=== PATIENT | male | born 1950 | race Caucasian/White ===

== ENCOUNTER 2016-02-18 10:59 | Emergency (ER) | payer OTHER ==
[2016-02-18] MEDS ORDERED: IPRATROPIUM/ALBUTEROL 3 ML DEYVIAL IH ONE (12:36)
[2016-02-18] MEDS ORDERED: NS 1,000 ML IV ONE (12:41)
[2016-02-18 13:06] LABS: % IMMATURE GRANULYOCYTES 0.3 % (0.0-1.1); ABSOLUTE IMMATURE GRANULOCYTES 0.04 10^3/uL (0.00-0.10); ADD DIFF? NO; ADD MORPH? NO; ADD SCAN? NO; ATYPICAL LYMPHOCYTE FLAG 0 (0-99); FRAGMENT RBC FLAG 0 (0-99); HEMATOCRIT 43.1 % (40.0-51.0); HEMOGLOBIN 14.3 g/dL (13.7-17.5); LEFT SHIFT FLG 0 (0-99); LIPEMIA HEMOLYSIS FLAG 80 (0-99); MEAN CELL HEMOGLOBIN 30.4 pg (27.9-34.1); MEAN CELL HEMOGLOBIN CONCENTR. 33.2 g/dL (32.4-36.7); MEAN CELL VOLUME 91.5 fL (81.5-99.8); MEAN PLATELET VOLUME 10.2 fL (8.7-11.7); PLATELET CLUMPS FLAG 10 (0-99); PLATELET COUNT 248 10^3/uL (150-400); RED BLOOD CELL COUNT 4.71 10^6/uL (4.40-6.38); RED CELL DISTRIBUTION WIDTH 12.7 % (11.5-15.2)
--- NOTE | 2016-02-18 13:06 | UCPHY ---
H & P Patient Type: Established Chief Complaint Nursing Narrative: COUGH AND CONGESTION FOR 2 DAYS, SHORTNESS OF BREATH, FATIGUE, WEAKNESS, DENIES FEVERS. Time Seen by Provider: 02/18/16 12:38 HPI/ROS: This patient complains of cough and dyspnea. For the past 10 days he has had mild dry cough initially. However, over the past 3 days cough has been come productive and more frequent. He reports increasing dyspnea over the past few days in addition including dyspnea on exertion and mild dyspnea at rest. He has associated fatigue. He reports some myalgias as well but denies any other associated symptoms. His recent history is notable for being off of Coumadin for approximately 10 days due to a GI bleed caused in part due to Coumadin induced coagulopathy with an INR of 7. He was hospitalized in [place] for that illness and just started his Coumadin again 3 days prior to arrival taking 5 mg a day 5 days a week and 7.5 mg a day 2 days a week. ROS: Constitutional: No high fevers or chills HEENT: He reports intermittent migraines that seem to be triggered by guaifenesin. He has mild nasal congestion. Neuro: No focal numbness tingling weakness Currently he has no significant headache. Pulmonary: No pleuritic chest pain. No bloody sputum. Cardiac: No heart palpitations. No lightheadedness. No peripheral edema or calf tenderness. GI: He reports no belly pain except for mild belly bloating. Integumentary: No rash and complete review of symptoms is otherwise negative Source: Patient Exam Limitations: No limitations - Medical/Surgical History PMH: Pulmonary embolism Recent GI bleed due to coagulopathy hospitalized in [place] on 02/01 to Off of Coumadin for 10 days just restarted 3 days ago Hx Asthma: No Hx Chronic Respiratory Disease: No Hx Diabetes: No Hx Cardiac Disease: No Hx Renal Disease: No Hx Cirrhosis: No Hx Alcoholism: No Hx HIV/AIDS: No Hx Splenectomy or Spleen Trauma: No Other PMH: Bilateral total knee replacement, PE 2012, CHRONIC LOW BACK PAIN, migraine headaches - Family History Significant Family History: No pertinent family hx - Social History Smoking Status: Former smoker Constitutional: Initial Vital Signs Temperature (C) 37.0 C 02/18/16 12:31 Heart Rate 102 H 02/18/16 12:31 Respiratory Rate 24 H 02/18/16 12:31 Blood Pressure 151/78 H 02/18/16 12:31 O2 Sat (%) 90 L 02/18/16 12:31 O2 Delivery Mode Nasal Cannula O2 (L/minute) 2 Allergies/Adverse Reactions: NARCOTICS Allergy (Uncoded 02/18/16 12:29) Home Medications: Medication Instructions Recorded Coumadin 12/10/14 Depakote 12/10/14 GABAPENTIN 12/10/14 KLONOPIN 12/10/14 Mysoline 12/10/14 Nasal Decongestants 12/10/14 Verapamil 12/10/14 Vytorin 10-10 mg Tablet 12/10/14 Zomig 12/10/14 traMADOL 12/10/14 Cefuroxime Axetil [Cefuroxime] 500 mg PO BID #14 tablet 02/27/15 Lasix 02/27/15 Albuterol Hfa Anes Only [Proair 2 puffs IH Q4 PRN #1 mdi 02/18/16 Hfa Icu (*)] Azithromycin [Zithromax] 250 mg PO DAILY #6 tab 02/18/16 Medical Decision Making - Diagnostics Imaging: I reviewed this CT angio with Dr. luna-radiologist reports a lot of baseline findings consistent with sarcoidosis. No PE. Patient has interstitial findings with evidence of very early infiltrates left medial region and right basilar region-likely early pneumonia ED Course/Re-evaluation: Use cannula O2 2 L with O2 sat in the mid 90s after initial room air of 90% DuoNeb, with mild reduction and coughing subjective improvement IV, blood cultures labs Ceftriaxone IV I counseled patient regarding his workup findings with CT angio negative for PE , positive for early pneumonia The patient's O2 sat in room air 87%. He appears well clinically despite this not think is safe for discharge home with supplementary O2 and close follow-up. Patient agrees with this plan and is not interested in admission for his illness. Discussion: Patient with mild hypoxia from early pneumonia. We ruled out PE. He also has history of sarcoidosis but is otherwise well. - Data Points Laboratory Results: Laboratory Results 02/18/16 12:56 02/18/16 12:56 Medications Given: Discontinued Medications Albuterol/Ipratropium (Duoneb) 3 ml IH EDNOW ONE Stop: 02/18/16 12:37 Last Admin: 02/18/16 12:45 Dose: 3 ml Sodium Chloride (Ns) 1,000 mls @ 0 mls/hr IV ONCE ONE PRN Reason: Wide Open Stop: 02/18/16 12:42 Last Admin: 02/18/16 13:00 Dose: 1,000 mls Ceftriaxone Sodium 1 gm/ (Sodium Chloride) 100 mls @ 200 mls/hr IV EDNOW ONE PRN Reason: Protocol Stop: 02/18/16 14:44 Last Admin: 02/18/16 14:24 Dose: 100 mls Departure - Departure Disposition: Home, Routine, Self-Care Clinical Impression: Bronchial pneumonia Condition: Good Instructions: Community Acquired Pneumonia (ED) Additional Instructions: Diagnosis: Bronchial pneumonia Plan: Humidifier Albuterol inhaler with spacer for cough, wheeze or shortness of breath Zithromax antibiotic Recheck your Coumadin/INR level within the next 3 days as the Zithromax because the INR to go up more than usual. Currently your INR is 1.5-on the low side. While on the Zithromax, out plan to only have 5 mg doses rather than the 7.5 mg doses Go to the emergency department for any significant worsening despite the treatment plan. Referrals: Joanne Box MD [Primary Care Provider] - As per Instructions Prescriptions: Albuterol Hfa Anes Only [Proair Hfa Icu (*)] 2 puffs IH Q4 PRN #1 mdi PRN Reason: Wheezing Azithromycin [Zithromax] 250 mg PO DAILY #6 tab - PQRS PQRS Measurement: 134: Depression screening and followup, PRIME MD-PHQ2 (12 years and older) Over the last 2 weeks, how often have you been bothered by any of the following problems? 1. Feeling down, depressed, or hopeless? 2. Little interest or pleasure in doing things? Patient answered no to both 1 and 2 130: Documentation of medications. Reviewed all patient medications, doses, route and frequency. 226: Do you smoke? [No.] 47: 65 and older: Advanced care planning. Patient designates surrogate decision maker as spouse 51: 18 years old and older with diagnosis of COPD, spirometry performance. NA 52: 18 years old and older with COPD and symptoms of COPD or FEV1<60% predicted prescribed a B Agonist. NA
[2016-02-18 13:19] LABS: INR 1.51 (0.83-1.16); PROTIME(PATIENT) 17.9 SEC (12.0-15.0)
[2016-02-18 13:20] LABS: APTT 37.1 SEC (23.0-38.0)
[2016-02-18 13:23] LABS: ALANINE AMINOTRANSFERASE 35 IU/L (21-72); ALBUMIN 3.7 g/dL (3.5-5.0); ALKALINE PHOSPHATASE 67 IU/L (38-126); ANION GAP 9 mEq/L (8-16); ASPARTATE AMINOTRANSFERASE 19 IU/L (17-59); BILIRUBIN,TOTAL 0.6 mg/dL (0.1-1.4); CALCIUM 9.1 mg/dL (8.5-10.4); CARBON DIOXIDE 25 mEq/l (22-31); CHLORIDE 104 mEq/L (97-110); CREATININE 1.1 mg/dL (0.7-1.3); GLOMERULAR FILTRATION RATE > 60; GLUCOSE 138 mg/dL (70-100); POTASSIUM 4.3 mEq/L (3.5-5.2); SODIUM 138 mEq/L (134-144); TOTAL PROTEIN 6.8 g/dL (6.3-8.2)
[2016-02-18] MEDS ORDERED: IOPAMIDOL (ISOVUE 370) 100 ML BTL IV ONE (13:34)
[2016-02-18] MEDS ORDERED: NS 100 ML BAG (MINI-BAG) IV ONE (14:20)
--- NOTE | 2016-02-18 14:24 | CT ---
CT Pulmonary Angiogram Clinical Indications: Cough and shortness of breath. History of prior PE. Comparison: February 27, 2015. Technique: Thinly collimated multidetector helical CT imaging was performed through the chest while 90 mL Isovue-370 were injected intravenously without complication. The images were then transferred to an independent workstation where multiplanar and three-dimensional reconstructions were performed by the interpreting physician and reviewed at multiple windows. Dose reduction techniques were utiliz ed. Findings: Chest: There are enlarged hilar and mediastinal lymph nodes some of which are calcified. They are not significantly changed from one year prior. There are some early areas or mild areas of patchy medial consolidative change at the left base and patchy lateral atelectatic change at the right base with s ome mild mucous plugging. There are no new pulmonary nodules. A 4 mm subpleural pulmonary nodule in t he left upper lobe series 2 image 105 has not significantly changed since prior examination. Bones ar e unremarkable. Limited examination of the upper abdomen is unremarkable. CT Pulmonary Angiogram: No intraluminal filling defects are seen in the pulmonary arterial system to suggest pulmonary embolus. The thoracic aorta has a normal contour without evidence of aneurysm or dissection. Impression: 1. Interval resolution of right upper lobe consolidation and new patchy areas of basilar atelectatic and consolidative change in the medial left base and lateral right base. 2. Hilar and mediastinal adenopathy, unchanged. Some of this is calcified suggesting sarcoid or old g ranulomatous disease. 3. No new suspicious pulmonary nodules. Critical results relayed by Dr. Ramos to Merlin Thomas M.D. on February 18, 2016 at 1418 hours.
[2016-02-18 14:49] VITALS: O2SAT 91
[2016-02-18 15:26] VITALS: BP 137/77; PULSE 91; RESP 16; TEMP 98.2
== END 2016-02-18 15:25 | disposition home or self-care (01) ==
LOC: CED 10:59
DX: J18.9 Pneumonia, unspecified organism (principal); Z86.711 Personal history of pulmonary embolism; Z87.891 Personal history of nicotine dependence; Z96.653 Presence of artificial knee joint, bilateral; D86.9 Sarcoidosis, unspecified
CPT/HCPCS: 71275; 96361; 96365; G0463; J0696; Q9967; 80053-PO; 85025-PO; 85378-PO; 85610-PO; 85730-PO; 87400-PO; 99214-PO

== ENCOUNTER → 2016-04-03 | Outpatient (CLI) | payer OTHER | LOC: CIMAGING 13:49 | PROVIDERS: ATTEND Family Medicine | DX: J18.0 Bronchopneumonia, unspecified organism (principal) | CPT/HCPCS: 71020-PO ==

== ENCOUNTER → 2016-05-26 | Outpatient (CLI) | payer OTHER | LOC: CIMAGING 13:35 | PROVIDERS: ATTEND Family Medicine | DX: R91.8 Other nonspecific abnormal finding of lung field (principal) | CPT/HCPCS: 71020-PO ==

== ENCOUNTER → 2017-05-22 | Outpatient (CLI) | payer OTHER | LOC: FCPNEURO 20:00 | PROVIDERS: ATTEND Psychiatry & Neurology Sleep Medicine | DX: G47.33 Obstructive sleep apnea (adult) (pediatric) (principal); R09.02 Hypoxemia ==

== ENCOUNTER → 2017-07-02 | Day surgery (SDC) | payer OTHER ==
[~2017-07-02] MED LIST: LIDOCAINE 1% 2 ML INJ ID PRN; LIDOCAINE 2% 5 ML SDV ONE; LR 1,000 ML IV ONE; NALOXONE HCL 0.4 MG/ML INJ IVP PRN; PROPOFOL 200 MG/20 ML VIAL ONE
[2017-07-02 09:51] LABS: INR 1.36 (0.83-1.16); PROTIME(PATIENT) 16.9 SEC (12.0-15.0)
--- NOTE | 2017-07-02 10:07 | PDANEPAE ---
ANE History of Present Illness Dysphagia, heartburn ANE Past Medical History - Cardiovascular History Hx Hypertension: No Hx Arrhythmias: No Hx Chest Pain: No Hx Coronary Artery / Peripheral Vascular Disease: No Hx CHF / Valvular Disease: No Hx Palpitations: No Cardiovascular History Comment: ON CHOL RX - Pulmonary History Hx COPD: No Hx Asthma/Reactive Airway Disease: No Hx Recent Upper Respiratory Infection: No Hx Oxygen in Use at Home: No Hx Sleep Apnea: Yes Sleep Apnea Screening Result - Last Documented: Positive Pulmonary History Comment: PE-ON COUMADIN. PNEUMONIA 17. DYSPNEA ON EXERTION. - Neurologic History Hx Cerebrovascular Accident: No Hx Seizures: No Hx Dementia: No Neurologic History Comment: "SEVERAL TIA'S" , HX MIGRAINES-UNDER CONTROL NOW DUE TO BOTOX INJECTION. LAST MIGRAINE - Endocrine History Hx Diabetes: No - Renal History Hx Renal Disorders: No - Liver History Hx Hepatic Disorders: No - Neurological & Psychiatric Hx Hx Neurological and Psychiatric Disorders: Yes Neurological / Psychiatric History Comment: LOW BACK PAIN-OCC RADIATES DOWN LEGS ,BILAT FOOT DROP. RESTLESS LEG SYNDROME. - Congenital Disorder History Hx Congenital Disorders: No - GI History Hx Gastrointestinal Disorders: Yes Gastrointestinal History Comment: HIATAL HERNIA-ON PRILOSEC. DYSPHAGIA. POLYPS - Other Health History Other Health History: LE EDEMA-ON LASIX. ESSENTIAL TREMOR. - Chronic Pain History Chronic Pain: Yes (LOW BACK) - Surgical History Prior Surgeries: BILAT TOTAL KNEES. INGUINAL HERNIA SX ANE Review of Systems Review of Systems: - Exercise capacity METS (RN): 4 METS ANE Patient History - Allergies Allergies/Adverse Reactions: morphine Allergy (Verified 07/02/17 09:32) Migraines NARCOTICS Allergy (Uncoded 07/02/17 09:35) - Home Medications Home Medications: Coumadin 12/10/14 [Last Taken 06/28/17] GABAPENTIN 12/10/14 [Last Taken 07/02/17 06:30] Mysoline 12/10/14 [Last Taken Unknown] Lasix 02/27/15 [Last Taken 07/01/17 09:00] Atorvastatin Calcium 07/01/17 [Last Taken 07/01/17 22:30] CeleBREX 07/01/17 [Last Taken 07/01/17 09:00] Flonase Nasal [place] 07/01/17 [Last Taken 06/29/17] Nortriptyline HCl 07/01/17 [Last Taken 07/01/17 22:30] Prilosec 07/01/17 [Last Taken 07/01/17] Propranolol HCl 07/01/17 [Last Taken 06/30/17] Ropinirole ER 07/01/17 [Last Taken 07/01/17 22:30] Symbicort 80-4.5 Mcg Inhaler 07/01/17 [Last Taken 07/02/17 06:30] - NPO status NPO Since - Liquids (Date): 07/02/17 NPO Since - Liquids (Time): 03:00 NPO Since - Solids (Date): 06/30/17 NPO Since - Solids (Time): 09:00 - Anes Hx Anes Hx: no prior problems - Smoking Hx Smoking Status: Former smoker ANE Labs/Vital Signs - Labs Result Diagrams: 07/02/17 09:28 - Vital Signs Blood Pressure: 104/65 Heart Rate: 69 Respiratory Rate: 16 O2 Sat (%): 90 Height: 172.72 cm Weight: 99.79 kg ANE Physical Exam - Airway Neck exam: FROM Mallampati Score: Class 2 Mouth exam: normal dental/mouth exam - Pulmonary Pulmonary: no respiratory distress - Cardiovascular Cardiovascular: regular rate and rhythym - ASA Status ASA Status: II ANE Anesthesia Plan Anesthesia Plan: MAC
--- NOTE | 2017-07-02 10:11 | PDHPUP ---
History & Physical Update H&P update statement: This history and physical update is based on an assessment of the patient which was completed after admission or registration (within 24 hours), but prior to the surgery/procedure. H&P update: H&P reviewed & patient examined, no change in patient's condition since H&P completed
--- NOTE | 2017-07-02 11:12 | GIREPORT ---
Formerly [facility] Surgical Services - Endoscopy Department Patient Name: Clayton Deal Procedure Date: 07/02/2017 10:06 AM Patient Type: Outpatient Attending MD/ ER Physician: Libia Lentz Procedure: Upper GI endoscopy Indications: Dysphagia Providers: Major Sanchez MD Referring MD: Joanne Box MD Medicines: Total IV Anesthesia (TIVA) + IV general w/o airway Complications: No immediate complications. Estimated blood loss: Minimal. Description of Procedure: After obtaining informed consent, the endoscope was passed under direct vision. Throughout the procedure, the patient's blood pressure, pulse, and oxygen saturations were monitored continuously. The Endoscope was intro duced through the mouth, and advanced to the third part of duodenum. The uppe r GI endoscopy was accomplished without difficulty. The patient tolerated th e procedure well. Findings: Mucosal changes including crepe paper esophagus and longitudinal markin gs were found in the entire esophagus. Biopsies were obtained from the pro ximal and distal esophagus with cold forceps for histology of suspected eosinophilic esophagitis. Estimated blood loss was minimal. Scattered mild inflammation characterized by erosions, erythema and friability was found in the gastric body and in the gastric antrum. Bio psies were taken with a cold forceps for histology. Estimated blood loss was minimal. There was a medium-sized lipoma in the gastric antrum. Biopsies were ta constantino with a cold forceps for histology. Estimated blood loss was minimal. The examined duodenum was normal. The exam was otherwise without abnormality. Estimated Blood Loss: Estimated blood loss was minimal. Post Op Diagnosis: - Esophageal mucosal changes suggestive of eosinophilic esophagitis. Biopsied. - Gastritis. Biopsied. - Gastric lipoma. Biopsied. - Normal examined duodenum. - The examination was otherwise normal. Recommendation: - Await pathology results. - My office will call with the pathology result with 5-7 days. If you h ave not heard from my office by 12-14, do not assume the pathology is lima l, please call [phone] to get the pathology reults. - If biopsy are consistent with Eosinophilic Esophagitis (EoE), then re aristeo to die barber and consider swallowed not inhaled fluticasone prn. - Use Protonix (pantoprazole) 40 mg PO daily. For 8 weeks, take 30-60 minutes befoer breakfast - Perform a colonoscopy today. - Return to GI clinic in 4 weeks. - Return to primary care physician as previously scheduled. - Thank you for allowing me to help in your patient's care. Do not hesi robles to call with any questions. Attending Participation: I personally performed the entire procedure. Laura Gonsalves M.D Major Sanchez MD 07/02/2017 11:11:29 AM This report has been signed electronicallyMathew MD Laura Number of Addenda: 0 Note Initiated On: 07/02/2017 10:06 AM [email or web address]
--- NOTE | 2017-07-02 11:15 | GIREPORT ---
Formerly [facility] Surgical Services - Endoscopy Department Patient Name: Clayton Deal Procedure Date: 07/02/2017 9:56 AM Patient Type: Outpatient Attending MD/ ER Physician: Libia Lentz Procedure: Colonoscopy Indications: Surveillance: Personal history of adenomatous polyps on last colonoscop y > 5 years ago Providers: Major Sanchez MD Referring MD: Joanne Box MD Medicines: Total IV Anesthesia (TIVA) = IV general w/o airway Complications: No immediate complications. Estimated blood loss: Minimal. Description of Procedure: After obtaining informed consent, the scope was passed under direct vis ion. Throughout the procedure, the patient's blood pressure, pulse, and oxyg en saturations were monitored continuously. The was introduced through the anus and advanced to the cecum, identified by the appendiceal orifice, ileoc ecal valve and palpation. The colonoscopy was performed with difficulty due to significant looping and a tortuous colon. Successful completion of the procedure was aided by using manual pressure and straightening and shortening the scope to obtain bowel loop reduction. The patient tolera ashley the procedure well. The quality of the bowel preparation was good. Findings: The digital rectal exam was normal. A 3 mm polyp was found in the mid transverse colon. The polyp was semi-sessile. The polyp was removed with a piecemeal technique using a cold biopsy forceps. Resection and retrieval were complete. Estimated blood loss was minimal. Many medium-mouthed diverticula were found in the sigmoid colon and descending colon. The exam was otherwise without abnormality. Estimated Blood Loss: Estimated blood loss was minimal. Post Op Diagnosis: - One 3 mm polyp in the mid transverse colon, removed piecemeal using a cold biopsy forceps. Resected and retrieved. - Diverticulosis in the sigmoid colon and in the descending colon. - The examination was otherwise normal. Recommendation: - Await pathology results. - My office will call with the pathology result with 5-7 days. If you h ave not heard from my office by 12-14, do not assume the pathology is lima l, please call [phone] to get the pathology results. - Repeat colonoscopy in 5 years for surveillance. - High fiber diet indefinitely. - 30-35 grams of dietary fiber per day. Can use supplemental fiber. - A high fiber diet may decrease risk of complications from diverticulo sis. There is no need to avoid seeds or nuts. - Patient has a contact number available for emergencies. The signs and symptoms of potential delayed complications were discussed with the pat ient. Return to normal activities tomorrow. Written discharge instructions we re provided to the patient. - Continue present medications. - Discharge patient to home (ambulatory). - Return to primary care physician as previously scheduled. - See EGD for other recommendations - Thank you for allowing me to help in your patient's care. Do not hesi robles to call with any questions. Attending Participation: I personally performed the entire procedure. Laura Gonsalves M.D Major Sanchez MD 07/02/2017 11:15:26 AM This report has been signed electronicallyMathew MD Laura Number of Addenda: 0 Note Initiated On: 07/02/2017 9:56 AM Total Procedure Duration Time 0 hours 30 minutes 37 seconds [email or web address]
--- NOTE | 2017-07-02 11:20 | POSTANESTH ---
Post Anesthetic Evaluation Cardiovascular Status: Similar to Pre-Op Cond Respiratory Status: Similar to Pre-op Cond. Level of Consciousness/Mental Status: Alert and Oriented, Mildly Sleepy, Arousable Pain Control: Adequate, Prn Tx Ordered Nausea/Vomiting Control: Adequate, Prn Tx Ordered Complications Possibly Related to Anesthesia: None Noted
[2017-07-02 12:06] VITALS: BP 107/75
== END | disposition home or self-care (01) ==
LOC: FSGY 08:05
PROVIDERS: ATTEND Internal Medicine Gastroenterology
PROC: 0DBE8ZX Excision of Large Intestine, Via Natural or Artificial Opening Endoscopic, Diagnostic (ICD-10-PCS; principal; 2017-07-02 10:00)
PROC: 0DB98ZX Excision of Duodenum, Via Natural or Artificial Opening Endoscopic, Diagnostic (ICD-10-PCS; principal; 2017-07-02 10:00)
DX: Z12.11 Encounter for screening for malignant neoplasm of colon (principal); D12.3 Benign neoplasm of transverse colon; K57.30 Diverticulosis of large intestine without perforation or abscess without bleeding; K29.50 Unspecified chronic gastritis without bleeding; Z87.19 Personal history of other diseases of the digestive system; Z87.891 Personal history of nicotine dependence
CPT/HCPCS: J2704

== ENCOUNTER → 2017-07-30 | Outpatient (CLI) | payer OTHER | LOC: BHFA 11:00 | PROVIDERS: ATTEND Internal Medicine Cardiovascular Disease | DX: Z01.818 Encounter for other preprocedural examination (principal); R06.00 Dyspnea, unspecified; R09.02 Hypoxemia | CPT/HCPCS: 93005-PO ==

== ENCOUNTER 2017-07-31 11:06 | Day surgery (SDC) | payer OTHER ==
[2017-07-31] MEDS ORDERED: LR 1,000 ML IV ONE (11:25)
[2017-07-31] MEDS ORDERED: LIDOCAINE 1% 2 ML INJ ID PRN (11:25)
[2017-07-31] MEDS ORDERED: BUPIVACAINE 0.25% 30 ML SDV ONE (12:28)
[2017-07-31] MEDS ORDERED: PROPOFOL 200 MG/20 ML VIAL ONE ×2 (12:45)
[2017-07-31] MEDS ORDERED: LIDOCAINE 2% 5 ML SDV ONE (12:48)
[2017-07-31] MEDS ORDERED: MIDAZOLAM 2 MG/2 ML VIAL ONE (13:09)
--- NOTE | 2017-07-31 13:22 | PDHPUP ---
History & Physical Update H&P update statement: This history and physical update is based on an assessment of the patient which was completed after admission or registration (within 24 hours), but prior to the surgery/procedure. H&P update: no change in patient's condition since H&P completed (Respiratory and cardiovascular exams were unremarkable today. Left dorsal hand and wrist more swollen than last evaluation)
[2017-07-31] MEDS ORDERED: ONDANSETRON 4 MG/2 ML VIAL ONE (13:26)
[2017-07-31] MEDS ORDERED: DEXAMETHASONE 4 MG/ML VIAL ONE (13:26)
[2017-07-31] MEDS ORDERED: fentaNYL 100 MCG/2 ML INJ ONE (13:27)
[2017-07-31] MEDS ORDERED: PHENYLEPHRINE HCL 100 MCG/ML SYR ONE (13:33)
[2017-07-31] MEDS ORDERED: ceFAZolin 1 GM VIAL ONE ×2 (13:42)
[2017-07-31] MEDS ORDERED: ONDANSETRON 4 MG/2 ML VIAL IVP PRN (13:53)
[2017-07-31] MEDS ORDERED: NALOXONE HCL 0.4 MG/ML INJ IVP PRN (13:53)
[2017-07-31] MEDS ORDERED: ALBUTEROL 3 ML DEYVIAL IH PRN (13:53)
[2017-07-31] MEDS ORDERED: LR 500 ML IV PRN (13:53)
[2017-07-31] MEDS ORDERED: ACETAMINOPHEN 500 MG TAB PO PRN (13:53)
[2017-07-31] MEDS ORDERED: LABETALOL HCL 5 MG/ML 20 ML MDV IVP PRN (13:53)
[2017-07-31] MEDS ORDERED: PROMETHAZINE HCL 25 MG/ML INJ IVP PRN (13:53)
[2017-07-31] MEDS ORDERED: fentaNYL 100 MCG/2 ML INJ IVP PRN (13:53)
--- NOTE | 2017-07-31 13:53 | POSTANESTH ---
Post Anesthetic Evaluation Cardiovascular Status: Normal, Stable Respiratory Status: Normal, Stable Level of Consciousness/Mental Status: Mildly Sleepy, Arousable Pain Control: Adequate, Prn Tx Ordered Nausea/Vomiting Control: Adequate, Prn Tx Ordered Complications Possibly Related to Anesthesia: None Noted
--- NOTE | 2017-07-31 13:53 | PDANEPAE ---
ANE History of Present Illness left hand swelling ANE Past Medical History - Cardiovascular History Hx Hypertension: No Hx Arrhythmias: No Hx Chest Pain: No Hx Coronary Artery / Peripheral Vascular Disease: No Hx CHF / Valvular Disease: No Hx Palpitations: No Cardiovascular History Comment: ON CHOL RX - Pulmonary History Hx COPD: No Hx Asthma/Reactive Airway Disease: No Hx Recent Upper Respiratory Infection: No Hx Oxygen in Use at Home: No Hx Sleep Apnea: Yes Sleep Apnea Screening Result - Last Documented: Positive Pulmonary History Comment: PE on coumadin. seeing Minor - Neurologic History Hx Cerebrovascular Accident: No Hx Seizures: No Hx Dementia: No Neurologic History Comment: "SEVERAL TIA'S" , HX MIGRAINES last botox injection. 06/09/17 - Endocrine History Hx Diabetes: No - Renal History Hx Renal Disorders: No - Liver History Hx Hepatic Disorders: No - Neurological & Psychiatric Hx Hx Neurological and Psychiatric Disorders: Yes Neurological / Psychiatric History Comment: LOW BACK PAIN-OCC RADIATES DOWN LEGS ,BILAT FOOT DROP. RESTLESS LEG SYNDROME. situational depression - Cancer History Hx Cancer: Yes Cancer History Comment: skin cancer - Congenital Disorder History Hx Congenital Disorders: No - GI History Hx Gastrointestinal Disorders: Yes Gastrointestinal History Comment: HIATAL HERNIA-ON PRILOSEC. DYSPHAGIA. POLYPS ~'03 - Other Health History Other Health History: LE EDEMA-ON LASIX. ESSENTIAL TREMOR. oral thrush. 4 temp crowns - Chronic Pain History Chronic Pain: Yes (LOW BACK) - Surgical History Prior Surgeries: bilat TKA's. Inguinal hernia repair ANE Review of Systems Review of systems is: negative Review of Systems: - Exercise capacity METS (RN): 3 METS ANE Patient History - Allergies Allergies/Adverse Reactions: morphine Allergy (Verified 07/29/17 17:29) Migraines NARCOTICS Allergy (Uncoded 07/29/17 17:29) - Home Medications Home medications: home medication list seen and reviewed Home Medications: Coumadin 5 mg 12/10/14 [Last Taken 07/24/17] GABAPENTIN 12/10/14 [Last Taken 07/30/17] Lasix 02/27/15 [Last Taken 07/30/17 08:00] Atorvastatin Calcium 07/01/17 [Last Taken 07/01/17 22:30] CeleBREX 07/01/17 [Last Taken 07/01/17 09:00] Flonase Nasal [place] 07/01/17 [Last Taken 06/29/17] Nortriptyline HCl 07/01/17 [Last Taken 07/01/17 22:30] Prilosec 40 mg 07/01/17 [Last Taken 07/30/17] Propranolol HCl 07/01/17 [Last Taken 07/30/17] Ropinirole ER 07/01/17 [Last Taken 07/01/17 22:30] Symbicort 80-4.5 Mcg Inhaler 07/01/17 [Last Taken 07/17/17] Benadryl 07/29/17 [Last Taken Unknown] Fish Oil 1000 mg (*) 07/29/17 [Last Taken 07/24/17] Flomax 07/29/17 [Last Taken Unknown] Flonase Nasal [place] 07/29/17 [Last Taken Unknown] Herbals/Supplements -Info Only 07/29/17 [Last Taken Unknown] Melatonin 07/29/17 [Last Taken 07/30/17] Multivitamins 07/29/17 [Last Taken 07/24/17] Probiotic 07/29/17 [Last Taken 07/24/17] Sumatriptan 07/29/17 [Last Taken 07/29/17] Tylenol 07/29/17 [Last Taken Unknown] - NPO status NPO Since - Liquids (Date): 07/30/17 NPO Since - Liquids (Time): 20:00 NPO Since - Solids (Date): 07/30/17 NPO Since - Solids (Time): 20:00 - Smoking Hx Smoking Status: Former smoker - Family Anes Hx Family Hx Anesthesia Complications: none ANE Labs/Vital Signs - Vital Signs Blood Pressure: 107/77 Heart Rate: 82 Respiratory Rate: 16 O2 Sat (%): 88 Height: 172.72 cm Weight: 99.79 kg ANE Physical Exam - Airway Neck exam: FROM, increased neck circumference Mallampati Score: Class 2 Mouth exam: normal dental/mouth exam - Pulmonary Pulmonary: no respiratory distress - Cardiovascular Cardiovascular: regular rate and rhythym - ASA Status ASA Status: III ANE Anesthesia Plan Anesthesia Plan: GA w LMA Urgent/Emergent Case: Deboraliat michelecharley completed preop but documented later for safe timely pt care
[2017-07-31] MEDS ORDERED: KETOROLAC 30 MG/1 ML SDV ONE (13:55)
[2017-07-31] MEDS ORDERED: MIDAZOLAM 2 MG/2 ML VIAL IVP ONE (14:02)
--- NOTE | 2017-07-31 14:34 | POSTOPPROG ---
Post Op Note Date of Operation: 07/31/17 Surgeon: Tl Cook Anesthesiologist: Oscar Bellamy Anesthesia: LMA Pre-op Diagnosis: tenosynovitis synovitis left hand and wrist Post-op Diagnosis: same Indication: swelling and pain Procedure: Tenosynovectomy and synovectomy left wrist and hand Findings: inflamed lining tissue Inf/Abcess present in the surg proc area at time of surgery?: No Depth: Deep Incisional (Fascial) EBL: Minimal Total fluids administered: 600 Complications: none Specimen(s): tissue and fluid cultures sent
--- NOTE | 2017-07-31 15:27 | PDHOMEO2F ---
Home Oxygen Face to Face Home Orders: I certify that a physician or a nurse practitioner or physician's after school program assistant has had a [id number] encounter with this patient on the date of this order due to the diagnosis listed, which relates to the primary reason the patient requires home oxygen. Alternative treatments have been tried, or considered, and deemed ineffective. It is anticipated that supplemental oxygen will result in improvement with treatment. Home oxygen qualifying diagnosis: postop respiratory failure SpO2 on room air (%): 79 Frequency of home oxygen needed: continuous Home oxygen liters per minute: 2 Home oxygen delivery device: mask, nasal cannula Concentrator: No E-tanks for mobility and back up: Yes If ordering portable O2, is the patient mobile in the home?: Yes I certify that, based on these findings, the home oxygen is medically necessary for this patient for the following length of time. Length of time home oxygen needed: 1 week
--- NOTE | 2017-07-31 15:30 | GHP ---
[f rep st] PREOP HISTORY AND PHYSICAL DATE OF ADMISSION: 07/31/2017 PREOPERATIVE DIAGNOSIS: Tenosynovitis, dorsal aspect, left hand and wrist. POSTOPERATIVE DIAGNOSIS: Synovitis, radiocarpal and midcarpal joints; and tenosynovitis, dorsal aspe ct of left wrist and hand. PROPOSED OPERATION: Synovectomy of radiocarpal and midcarpal joints, left wrist, hand; and tenosynov ectomy, 4th dorsal compartment tendons, left wrist and hand. INDICATION: This patient had swelling, tenderness, limitation of motion of the left wrist and hand, and this had progressed even over the last 2 weeks since he was last seen in the office. With increa sed swelling and also limitation of wrist and finger motion, it was felt that tenosynovectomy and syn ovectomy of the wrist was a good option for him at this point. DESCRIPTION OF PROCEDURE: Under general anesthesia, the patient's left arm was prepped and draped in the usual fashion. Arm tourniquet applied at 250 mmHg. A Z-shaped incision was made over the dorsa l aspect of the left hand. Skin flaps were elevated, and the underlying extensor tendons of the 4th dorsal compartment were visualized. There was marked swelling of the distal extension of the extenso r retinaculum, and there was inflammatory tenosynovium on the surface of all the tendons. That was r emoved from the metacarpal neck area all the way back to the extensor retinaculum, and at that point the inflammatory tenosynovium stopped. It did not extend further above the retinaculum. Some of the inflammatory tenosynovium was sent to Microbiology for evaluation, and fluid also was sent for cultu re for aerobic, anaerobic, acid-fast bacteria and fungus. Then, the radiocarpal and midcarpal joints were found to be distended with tissue and fluid. Both those joints were opened at the dorsal aspec t, and marked inflammatory synovium was removed from both those joints. It was found that the scapho lunate interval had a ruptured scapholunate ligament. Articular surfaces were somewhat degenerate th ough there was still articular cartilage at both levels. The synovium was removed from both joints, and then the joints were irrigated profusely with body temperature saline. A sample of the synovial tissue also was sent to Microbiology for culturing as above. The extensor tendons were replaced in t heir anatomic position. No other pathology was identified. The skin incision was closed with horizo ntal mattress sutures of 5-0 Prolene, and then a bulky soft pressure dressing was applied followed by a palmar-based fiberglass splint held in place with an Tera bandage. He tolerated the procedure well . There were no complications. Tourniquet deflation resulted in immediate pinking of the digits. Vero quinn was brought to the recovery area where detailed postoperative instructions were given prior to disc harge. Prescriptions for [place] and Keflex were provided. He had been given 2 g of Ancef prior to co mmencement of surgery. The names of several rheumatologists were provided. 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 Follow up in our office in 1 week for dressing and suture removal and culture result review. /[id number]/MODL
[2017-07-31] MEDS ORDERED: ACETAMINOPHEN 500 MG TAB ONE (16:31)
[2017-07-31 16:41] VITALS: BP 98/70
== END 2017-07-31 17:15 | disposition home or self-care (01) ==
LOC: FSGY 11:06
PROVIDERS: ATTEND Specialist
PROC: 0LB60ZZ Excision of Left Lower Arm and Wrist Tendon, Open Approach (ICD-10-PCS; principal; 2017-07-31 13:00)
DX: M65.832 Other synovitis and tenosynovitis, left forearm (principal); M65.842 Other synovitis and tenosynovitis, left hand; G43.909 Migraine, unspecified, not intractable, without status migrainosus; N18.9 Chronic kidney disease, unspecified; F41.9 Anxiety disorder, unspecified; E78.5 Hyperlipidemia, unspecified; K44.9 Diaphragmatic hernia without obstruction or gangrene; M48.061 Spinal stenosis, lumbar region without neurogenic claudication; G47.33 Obstructive sleep apnea (adult) (pediatric); Z79.01 Long term (current) use of anticoagulants; Z86.73 Personal history of transient ischemic attack (TIA), and cerebral infarction without residual deficits; Z86.711 Personal history of pulmonary embolism; Z87.891 Personal history of nicotine dependence; Z86.718 Personal history of other venous thrombosis and embolism; Z96.653 Presence of artificial knee joint, bilateral; Z66 Do not resuscitate
CPT/HCPCS: J0690; J1100; J1885; J2250; J2370; J2405; J2704; J3010

== ENCOUNTER → 2017-08-20 | Outpatient (CLI) | payer OTHER | LOC: BHFA 08:30 | PROVIDERS: ATTEND Internal Medicine Cardiovascular Disease | DX: Z01.810 Encounter for preprocedural cardiovascular examination (principal); R09.02 Hypoxemia; R06.00 Dyspnea, unspecified | CPT/HCPCS: 78452; 93017; 93306; A9500; J2785 ==

== ENCOUNTER → 2017-10-02 | Outpatient (CLI) | payer OTHER | LOC: CIMAGING 13:25 | PROVIDERS: ATTEND Physician Assistant Surgical | DX: Z47.89 Encounter for other orthopedic aftercare (principal); Z98.1 Arthrodesis status | CPT/HCPCS: 72100-PO ==

== ENCOUNTER → 2017-12-04 | Outpatient (CLI) | payer OTHER | LOC: CIMAGING 13:12 | PROVIDERS: ATTEND Neurological Surgery | DX: R93.7 Abnormal findings on diagnostic imaging of other parts of musculoskeletal system (principal) | CPT/HCPCS: 72100-PO ==

== ENCOUNTER → 2018-01-26 | Outpatient (CLI) | payer OTHER | LOC: FIMAGING 10:46 | PROVIDERS: ATTEND Internal Medicine Pulmonary Disease | DX: I27.0 Primary pulmonary hypertension (principal); J98.4 Other disorders of lung | CPT/HCPCS: 71046; 78580; A9540 ==

== ENCOUNTER 2018-03-05 06:32 | Day surgery (SDC) | payer OTHER ==
[2018-03-05] MEDS ORDERED: NS 500 ML IV ONE (06:52)
[2018-03-05] MEDS ORDERED: MIDAZOLAM 2 MG/2 ML VIAL ONE ×2 (07:38→07:58)
[2018-03-05] MEDS ORDERED: LIDOCAINE 1% 300 MG/30 ML SDV ONE (07:38)
[2018-03-05] MEDS ORDERED: EPINEPHrine 1 MG/ML INJ ONE (07:38)
[2018-03-05] MEDS ORDERED: ALBUTEROL 3 ML DEYVIAL ONE (07:38)
[2018-03-05] MEDS ORDERED: fentaNYL 100 MCG/2 ML INJ ONE ×2 (07:39→07:58)
[2018-03-05 07:54] LABS: INR 1.05 (0.83-1.16); PROTIME(PATIENT) 13.9 SEC (12.0-15.0)
--- NOTE | 2018-03-05 07:59 | PDPROPOC ---
Sedation Plan of Care ASA Classification: ASA 3 Planned drugs: fentanyl, midazolam Mallampati Score: Class 3 Mallampati Reference Image: Patient passed 3-3-2 rule?: Yes
[2018-03-05 09:47] VITALS: BP 121/77
[2018-03-05] MEDS ORDERED: IOTHALAMATE MEG (CONRAY) 50 ML VIAL IV ONE (10:17)
--- NOTE | 2018-03-05 12:16 | SUROPNOTE ---
[facility] Operative Report - Surgery PROCEDURE NOTE Flexible bronchoscopy with transbronchial fine-needle aspiration of subcarinal lymph node, transbronchial biopsies of right middle lobe and bronchoalveolar lavage Procedure Box Sealing Machine Feeder Antonette Turner MD Procedures: Flexible bronchoscopy with BAL transbronchial fine needle aspiration of subcarinal lymph node transbronchial forceps biopsy of right middle lobe Indication: respiratory failure, chronic granulomatous disease, pulmonary nodule Preoperative diagnosis: respiratory failure, chronic granulomatous disease, pulmonary nodule Post operative diagnosis: respiratory failure, chronic granulomatous disease, pulmonary nodule Consent: Obtained from patient and prior to procedure after explanation of the procedure, alternatives, risks, and benefits. Anesthesiologist NA Sedation Type: Moderate sedation, Total moderate sedation service time 45 min Sedation Medications: Fentanyl 100 mcg, Versed 4 mg Medications: Topical 1% lidocaine: 14 via bronchoscope on vocal cords and tracheobronchial tree 4% lidocaine: 4 CC via nebulizer and atomizer Procedure Summary: Time out was performed. The bronchoscope was introduced via the oropharynx and vocal cords were identified. No lesions were noted. Vocal cords were then anesthetized with topical lidocaine. The bronchoscope was then advanced into the lungs and the left and right mainstem bronchi received topical lidocaine. The trach entire tracheobronchial tree was examined and appeared normal. Next a 21 gauge Maytech rao needle was used to perform transbronchial fine-needle aspiration of the subcarinal node (station 7). Seven total passes were performed, 3 of which gentle suction was applied to increase the yield. Next, 6 transbronchial biopsies were obtained in the medial segment patient's right middle lobe. Next, a formal bronchoalveolar lavage was performed in patient's right middle lobe with instillation of 100 cc of saline and return of 35 cc of blood-tinged appearing fluid. Patient tolerated the procedure well without immediate complication. Immediate postop chest x-ray was performed that did not demonstrate any pneumothorax. Conscious sedation was performed and vitals were continuously monitored by dedicated nurse as well as myself throughout the procedure. Total moderate sedation service time was 45 min. EBL none Complications: None Items to Follow-up: Cytopathology, pathology, tissue culture, BAL fluid culture, FNA culture, CD4: CD8, cell count and diff Post Operative Care: Patient to be discharged from PACU. Initiate Lovenox bridge 80 mg subcutaneously twice daily until INR 2 or greater. Patient to follow up in clinic in 4 weeks to review results and discuss further treatment options. S Fredi Turner MD Pulmonary and Critical Care Medicine [phone]
== END 2018-03-05 10:09 | disposition home or self-care (01) ==
LOC: FSGY 06:32
PROVIDERS: ATTEND Internal Medicine Pulmonary Disease
PROC: 0B958ZX Drainage of Right Middle Lobe Bronchus, Via Natural or Artificial Opening Endoscopic, Diagnostic (ICD-10-PCS; principal; 2018-03-05 08:00)
PROC: 07973ZX Drainage of Thorax Lymphatic, Percutaneous Approach, Diagnostic (ICD-10-PCS; principal; 2018-03-05 08:00)
PROC: 0BBD3ZX Excision of Right Middle Lung Lobe, Percutaneous Approach, Diagnostic (ICD-10-PCS; principal; 2018-03-05 08:00)
DX: D71 Functional disorders of polymorphonuclear neutrophils (principal); J96.90 Respiratory failure, unspecified, unspecified whether with hypoxia or hypercapnia; R91.1 Solitary pulmonary nodule; J44.9 Chronic obstructive pulmonary disease, unspecified; G43.909 Migraine, unspecified, not intractable, without status migrainosus
CPT/HCPCS: J0171; J2250; J3010; J7613; Q9961

== ENCOUNTER → 2018-03-23 | Outpatient (CLI) | payer OTHER | LOC: BHFA 10:45 | PROVIDERS: ATTEND Internal Medicine Cardiovascular Disease | DX: R06.00 Dyspnea, unspecified (principal) ==

== ENCOUNTER → 2018-05-07 | Outpatient (CLI) | payer OTHER | LOC: CIMAGING 09:49 | PROVIDERS: ATTEND Internal Medicine Pulmonary Disease | DX: J44.1 Chronic obstructive pulmonary disease with (acute) exacerbation (principal); R05 Cough; R06.02 Shortness of breath | CPT/HCPCS: 36415-PO; 71046-PO ==

== ENCOUNTER → 2018-08-09 | Outpatient (CLI) | payer OTHER | LOC: CIMAGING 14:17 ==